=== PATIENT | female | born 1975 | race Caucasian/White ===

== ENCOUNTER 2016-06-17 06:09 | Day surgery (SDC) | payer BC ==
[2016-06-10 09:36] LABS: BASOPHILS 0.5 %; BASOPHILS ABSOLUTE 0.04 10/3/uL (0.0-0.16); EOSINOPHILS 3.2 %; EOSINOPHILS ABSOLUTE 0.27 10/3/uL (0.0-0.53); HEMATOCRIT 38.9 % (36.0-48.0); HEMOGLOBIN 12.9 g/dL (12.0-16.0); IMMATURE GRANULOCYTES 0.1 %; IMMATURE GRANULOCYTES ABSOLUTE 0.01 10/3/uL (0.0-0.11); LYMPHOCYTES 22.4 %; MEAN CORPUS HGB CONC 33.2 g/dL (32.0-36.0); MEAN CORPUSCULAR HEMOGLOB 31.2 pg (26.0-34.0); MEAN CORPUSCULAR VOLUME 94.2 fL (80-100); MEAN PLATELET VOLUME 10.4 fL (9.2-13.0); MONOCYTES 5.5 %; MONOCYTES ABSOLUTE 0.47 10/3/uL (0.21-1.20); NEUTROPHILS 68.3 %; NEUTROPHILS ABSOLUTE 5.81 10/3/uL (2.02-8.40); PLATELET COUNT 250 10/3/uL (150-400); RBC DISTRIBUTION WIDTH 12.8 % (12.0-16.0); RED CELL COUNT 4.13 10/6/uL (4.0-5.6); WHITE BLOOD CELLS 8.5 10/3/uL (4.5-10.5)
[2016-06-10 09:37] LABS: MANUAL DIFF NO %
[2016-06-10 09:41] LABS: PARTIAL THROMBO TIME 28.9 SEC (22.5-37.2)
[2016-06-10 09:48] LABS: BUN (BLOOD UREA NITROGEN) 10 MG/DL (6-23); CALCIUM, SERUM 9.2 MG/DL (8.5-10.4); CHLORIDE, SERUM 105 MMOL/L (96-112); CO2 (CARBON DIOXIDE) 31 MMOL/L (24-34); CREATININE 0.67 MG/DL (0.55-1.02); GFR AFRICAN AMERICAN 127 ML/MIN (>=60); GFR NON AFRICAN AMERICAN 110 ML/MIN (>=60); GLUCOSE, SERUM 131 MG/DL (60-99); POTASSIUM, SERUM 4.2 MMOL/L (3.5-5.3); SODIUM, SERUM 142 MMOL/L (135-148)
--- NOTE | ~2016-06-17 | OP ---
Record Of Operation [facility] [address] [place]. [address] NAME: ELMIRA ROWAN : 77 [place] : [facility] [place] [id number] AGE: 41 ADM/REG DATE : 06/17/16 MR#: [id number] REPORT SERV DATE: 06/17/16 DICTATED BY: BARRIE DAI DATE: 06/17/16 REPORT STATUS : Draft TRANSCRIBED BY: ELLIOT DATE: 06/17/16 DATE OF PROCEDURE: 06/17/2016 PREOPERATIVE DIAGNOSIS: Chronic rhinosinusitis in the setting of chronic immunosuppression. POSTOPERATIVE DIAGNOSIS: Chronic rhinosinusitis in the setting of chronic immunosuppression. OPERATIVE PROCEDURES PERFORMED: 1. Right endoscopic frontal sinusotomy. 2. Right endoscopic ethmoidectomy. 3. Bilateral maxillary antrostomy with removal of tissue in the left maxillary sinus. INDICATIONS AND SIGNIFICANT HISTORY: The patient is a 41-year-old female with significant history of recurrent sinusitis and recurrent sinus issues and frequent headaches. She is on chronic immunosuppression for juvenile rheumatoid arthritis and this is felt to be hampering her treatment for her rheumatoid arthritis. OPERATIVE PROCEDURE AND FINDINGS: After informed consent was obtained, the patient was brought to the operating room and placed on the operating table in supine position, at which point, general endotracheal anesthesia was induced by Anesthesia Service and the stereotactic surgical navigation equipment was set up to provide surgical navigation for the right and left sides. Attention was turned initially to the right side where the frontal sinus was cannulated with a lighted guidewire and the balloon sinuplasty was initially performed of the right frontal sinus. This was followed by removal of the right uncinate process using a sickle knife and a straight grasping forceps and removal of the anterior ethmoid tissues, specifically the agger nasi cells and normal frontal recess. Attention was then turned towards the ethmoidectomy portion where the ethmoid bulla was entered with a suction shaver and carried inferiorly from anteriorly to posteriorly. The sphenoidal rostrum was encountered and the right sphenoid sinus was entered and a larger ostia was created in the right sphenoid sinus. Next, using a 45-degree Jason-Cut forceps, the ethmoid skull base was dissected from posteriorly to anteriorly. This completed the maxillary antrostomy on the right side and anterior and posterior ethmoidectomy and right frontal sinusotomy. Attention was then turned toward the left nasal cavity, where left nasal cavity was noted to have a bony septal spur touching the inferior turbinate on the left side. This bony spur was then fractured medially using a Sparta septal displacer to both improve approach to the left middle meatus region, as well as improve nasal airflow on the left side. Attention was then turned toward the middle meatus on the left. Uncinectomy was performed and maxillary antrostomy was opened. Preoperatively, there was noted to be a large cystic mass within the left maxillary sinus. This was grasped with a [id number] draft forceps and removed under 30-degree endoscopic visualization from the left maxillary sinus. At this point, a Propel sinus stent was placed into the right ethmoid bed. Hemostasis was assured throughout. The inferior turbinates were medialized and lateralized using a Sparta septal displacer, and the patient was turned back toward anesthesia, aroused from anesthesia, and taken to the postanesthesia care unit in satisfactory condition. COMPLICATIONS: None. Record Of Operation [address] [address] NAME: ELMIRA ROWAN : 77 [place] : [facility] [place] PAT#: [id number] AGE: 41 ADM/REG DATE : 06/17/16 MR#: [id number] REPORT SERV DATE: 06/17/16 DICTATED BY: BARRIE DAI. DATE: 06/17/16 REPORT STATUS : Draft TRANSCRIBED BY: ELLIOT DATE: 06/17/16 ESTIMATED BLOOD LOSS: Less than 50 mL. IV FLUIDS: Per Anesthesia. DLA/ELLIOT Barrie Dai M.D. / [id number] CC: Fili Katz M.D.
[~2016-06-17 06:09] MED LIST: ADDER10 PO; ESTROGEN SL; IMITREX100 MG PO; LYRICA75 PO; NAP500 PO; NEUR100 PO; NORCO1 TA1 PO; P5 PO; PLAQ200B PO; PROGESTERONE PO; PROZAC PO; PROZAC40 MG PO; SIMPONI50 MG SC; SUDAFED30 MG OR; TROCHE SL; YASMIN 281 TAB PO; [UNRECOGNIZED DRUG - CODE] PO; [UNRECOGNIZED DRUG - OTHER] SL
== END 2016-06-17 14:11 | disposition home or self-care (01) ==
LOC: SDC 06:09
PROVIDERS: Otolaryngology
PROC: 099R4ZZ Drainage of Left Maxillary Sinus, Percutaneous Endoscopic Approach (ICD-10-PCS; 2016-06-17)
PROC: 099Q4ZZ Drainage of Right Maxillary Sinus, Percutaneous Endoscopic Approach (ICD-10-PCS; 2016-06-17)
PROC: 09QS4ZZ Repair Right Frontal Sinus, Percutaneous Endoscopic Approach (ICD-10-PCS; principal; 2016-06-17 07:30)
PROC: 09DU4ZZ Extraction of Right Ethmoid Sinus, Percutaneous Endoscopic Approach (ICD-10-PCS; 2016-06-17 07:30)
DX: J32.8 Other chronic sinusitis (principal); M08.00 Unspecified juvenile rheumatoid arthritis of unspecified site; G43.909 Migraine, unspecified, not intractable, without status migrainosus; Z90.89 Acquired absence of other organs; Z98.890 Other specified postprocedural states; Z90.710 Acquired absence of both cervix and uterus; Z82.3 Family history of stroke; Z83.3 Family history of diabetes mellitus; Z80.9 Family history of malignant neoplasm, unspecified; Z88.0 Allergy status to penicillin; Z79.899 Other long term (current) drug therapy
CPT/HCPCS: 80048; 85025; 85610; 85730; 88305; A9270-GY; C1726; C2625; J0690; J2250; J2270; J2405; J2710; J3010